=== PATIENT | female | born 1985 | race Caucasian/White ===

== ENCOUNTER 2017-09-11 00:37 | Emergency (ER) | payer OTHER ==
[~2017-09-11] VITALS: Ht 162.6 cm; Wt 96.2 kg
[2017-09-11] MEDS ORDERED: ZOLOFT25 MG (00:41)
== END 2017-09-11 08:45 | disposition home or self-care (01) ==
LOC: ER 00:37
DX: G43.109 Migraine with aura, not intractable, without status migrainosus (principal)